=== PATIENT | male | born 1945 | race Caucasian/White ===

== ENCOUNTER 2016-11-21 12:12 | Emergency (ER) | payer OTHER, BC ==
[~2016-11-21] VITALS: Ht 167.6 cm; Wt 57.7 kg
[~2016-11-21 12:12] MED LIST: ASPIR-LOW81 MG PO; ASPIRIN81 M2 PO; BESIVANCE5 ML LEFT EYE; CALCIUM 600 +1 EAC4 PO; CALCIUM500 M4 PO; CALTRATE 600600 MG PO; DAILY VITAMIN1 EAC8 PO; LEVOXYL175 MCG PO; PRED FORTE100 DROP/5 LEFT EYE; PROLENSA1.6 ML LEFT EYE; VICODIN 5-3001 EACH PO; ZOFRAN4 MG PO
[2016-11-21 13:31] LABS: HEMATOCRIT 39.7 % (38.0-50.0); MCH 30.9 PG (29.0-34.0); MCHC 33.8 G/DL (30.0-36.0); MCV 91.7 FL (86-99); MEAN PLAT.VOLUME 10.4 uM^3 (9.0-12.4); PLATELET COUNT 165 K/uL (156-360); RBC DIS.WIDTH-CV 12.6 % (11.8-14.6); RBC DIS.WIDTH-SD 41.8 % (39-53); RED BLOOD COUNT 4.33 M/uL (4.00-5.50); WHITE BLOOD COUNT 4.6 K/uL (4.1-10.2)
[2016-11-21 13:41] LABS: CHLORIDE 107 mEq/L (99-109); POTASSIUM 4.4 mEq/L (3.7-5.4); SODIUM 140 mEq/L (136-147)
[2016-11-21 13:43] LABS: GLUCOSE 82 mg/dL (70-99)
[2016-11-21 13:44] LABS: ANION GAP 7 MEQ/L (2-14)
[2016-11-21 13:47] LABS: GFR ESTIMATE (CALCULATED) > 59 mL/min/
[2016-11-21 13:48] LABS: UREA NITROGEN (BUN) 18 mg/dL (9-23)
[2016-11-21 13:53] LABS: TROP-I INTERPRETATION NEGATIVE; TROPONIN-I < 0.01 ng/mL (0.0-0.30)
[2016-11-21 14:26] VITALS: BP 124/69
== END 2016-11-21 14:29 | disposition home or self-care (01) ==
LOC: EME 12:12
PROVIDERS: Emergency Medicine
DX: Z03.89 Encounter for observation for other suspected diseases and conditions ruled out (principal); Z87.891 Personal history of nicotine dependence; Z79.82 Long term (current) use of aspirin; E89.0 Postprocedural hypothyroidism; H91.90 Unspecified hearing loss, unspecified ear
CPT/HCPCS: 80048; 84484; 85027; 93005; 99281; 99283